=== PATIENT | female | born 1965 | race Caucasian/White ===

== ENCOUNTER 2024-07-19 07:23 | Emergency (ER) | payer BC, SELFPAY ==
[2024-07-19] VITALS (7 sets, daily range): BP systolic 115–154; BP diastolic 58–83
--- NOTE | 2024-07-19 08:00 | ED.GENMED ---
History of Present Illness
General
Chief Complaint: Breathing Problem
Source: patient and records
Exam Limitations: none
Time Seen by Provider: 07/19/24 07:39
Nursing documentation reviewed up to this point in time: agreed with
History of Present Illness
History of Present Illness:
59-year-old female presents with shortness of breath subacute onset has COPD, continues to smoke, about a pack a day history of pemphigoid no longer on steroids uses her nebulizer daily sometimes twice a day no fever no hemoptysis, has had some left
greater than right lower extremity edema and abrasion which did not heal up well, feel some fullness in the lower abdomen, no nausea or vomiting moving her bowels fine, no history of CHF never on a diuretic
Past History
Past History
ED Past Medical History: COPD and Other (pemphigus vulgaris); Negative Asthma, HTN, Hypercholesterolemia or NIDDM
ED Past Surgical History: None
Social History
Tobacco: Smoker
Alcohol: Daily (Wine 5 glasses)
Drug: None
Personal:
Living: with family
Employment: Employed
Family History
Family History: Negative Diabetes, Hypertension, Early CAD, Asthma or Cancer
Review of Systems
Review of Systems
All Other Systems: Not applicable
Constitutional: Denies fever or fatigue
EENT: Reports no symptoms
Respiratory: Reports cough and trouble breathing
Cardiac: Denies chest pain
ABD/GI: Reports other (Fullness into her abdomen); Denies abdominal pain, nausea, diarrhea, constipated or black stools
: Reports no symptoms
Musculoskeletal: Reports no symptoms
Skin: Reports no symptoms
Hematologic/Lymphatic: Reports no symptoms
Psychiatric: Reports no symptoms
Phy Exam
Physical Exam
Physical Exam:
Physical Exam
General: 59 female mild distress
Neck: No jaundice
Heart: Regular
Lungs: Slight tachypnea no wheeze diminished breath
Abdomen: Nontender
Neuro: alert and oriented. no focal neurological deficits
Skin: no rash
Psychiatric: well kept. interactive and cooperative
Extremities: Left greater than right edema healing wound on the anterior escamilla
Scores
Heart Failure Risk
Heart Failure Risk Score: Not Applicable
Course
Orders/Labs/Results
Orders:
Orders
07/19/24 07:25
Electrocardiogram (*1) Urgent
Reason for Study: Shortness of Breath
EKG- Treatment ONCE
07/19/24 07:46
CXR2 [CR Chest - 2 Views ] Urgent
Comment:
Reason For Exam: SOB
07/19/24 07:55
Ipratropium/Albuterol Sulfate [Duoneb] 3 ml INH R NOW ONE
07/19/24 07:58
CMP [Comprehensive Metabolic Panel] Urgent
Complete Blood Count/With Diff Urgent
NT-proBNP Urgent
Troponin I Urgent
07/19/24 08:44
D-Dimer Urgent
07/19/24 09:[address] [CT Chest Pe Study] Urgent
Comment:
Reason For Exam: sob ddimer up
07/19/24 10:10
Albuterol Nebs [Ventolin Nebules] 2.5 mg INH R NOW STA
Dexamethasone Sod Phosphate [Decadron] 10 mg IV NOW STA
Abnormal Lab Results
07/19/24 07/19/24
07:58 08:44
MCH 33.9 H pg
(27.0-31.0)
Lymphocytes % 17.4 L %
(20.5-51.1)
D-Dimer 0.63 H ug/mlFEU
(0.00-0.50)
Glucose 124 H mg/dl
(70-99)
07/19/24 07:58
07/19/24 07:58
Vital Signs
Initial and Last Documented VS:
Initial Vital Signs
Temp Pulse Resp BP Pulse Ox
98.2 F 88 18 154/83 95
07/19/24 07:24 07/19/24 07:24 07/19/24 07:24 07/19/24 07:24 07/19/24 07:24
Last Documented Vital Signs
Temp Pulse Resp BP Pulse Ox
98.2 F 79 12 115/58 94
07/19/24 07:24 07/19/24 10:00 07/19/24 10:00 07/19/24 10:00 07/19/24 10:00
MDM/Problems Addressed
Differential Diagnosis Includes:
COPD pneumonia bronchitis heart failure PE pneumothorax
MDM/Problems Addressed:
Shortness of
Chronic conditions affecting care:
COPD
Chronic conditions affecting care: COPD
Acute Exacerbation and/or Progression of Chronic Illness: COPD
*Radiology
Radiology exam reviewed: preliminary read by ED provider
*Pulse Oximetry
Patient hypoxic: no
*EKG
Interpreted by ED Provider?: Yes
Interpretation: abnormal
Comparison EKG: no comparison EKG present
Heart Rate: 78
Rate: normal
Rhythm: sinus
Ischemia: non-specific ST changes
*Horticultural Farm Manager Interpretation
Rate: normal
Interpretation: normal
Heart Rate: 78
Rhythm: sinus
*Critical Care Note
Total Time (30-74mins, 75-104mins- exclusive of procedures): Not Applicable
Update Note
Update Note:
Update troponin noted proBNP noted chest x-ray noted formal report pending D-dimer pending
update pt didn't tolerate Ct scan due to claustrophobia
Reviewed labs chest x-ray etc. with patient wanted age-adjusted basis her D-dimer is not particularly elevated, she does tell me that she is feeling markedly better after nebulizer and that she believes her nebulizer was not working properly at home
she is anxious to go home, I did offer her admission she states she feels so much better she would like to go home, will treat with a short burst of steroids, albuterol
ED Attending Note
-
Portions of this chart may have been created with voice recognition software.� Occasional wrong word or��sound alike� substitutions may have occurred due to the inherent limitations of voice recognition software.
Discharge Plan
Departure
Patient Disposition: Home (Routine Discharge)
Date of Disposition: 07/19/24
Time of Disposition: 10:26
Patient with high blood pressure during this ER visit?: No
Condition: Good
Covid-19: Not Applicable
Discharge Problem:
COPD exacerbation
Instructions: Acute Bronchitis, Adult (DC), Exacerbation of COPD (DC), Shortness of Breath (Dyspnea) (DC)
Prescriptions:
New
prednisone 10 mg tablet
10 mg PO DIRECTED Qty: 30 0RF
Rx Instructions:
4 pills a day for 3 days, 3 pills a day for 3 days, 2 pills a day for 3 days, 1 pill a day for 3 days
ipratropium-albuterol 0.5 mg-3 mg(2.5 mg base)/3 mL solution for nebulization
3 ml inhalation Q4H PRN (Reason: shortness of breath) Qty: 90 2RF
doxycycline hyclate 100 mg capsule
100 mg PO BID Qty: 14 0RF
No Action
azithromycin 250 MG tablet
500 mg PO DAILY Qty: 2 0RF
Rx Instructions:
TAKE 500MG (2 TABLETS) ON 01/09
guaifenesin [Mucus Relief ER] 600 MG tablet extended release 12hr
1,200 mg PO Q12 Qty: 30 0RF
ipratropium-albuterol 3 ML solution for nebulization
3 ml inhalation Q6H Qty: 1 0RF
Rx Instructions:
TAKE ONCE EVERY 6 HOURS AND NEEDED FOR WHEEZING/SHORTNESS OF BREATH
prednisone 10 MG tablet
10 mg PO .TAPER Qty: 30 0RF
Rx Instructions:
Take 40mg daily x3days, 30mg daily x3days,
20mg daily x3days, 10mg daily x3days.
Referrals:
Fabian Cruz DO [Family Provider] - Next open appointment
Justina Clements, [Active] - Follow up in 10 days
Interventions
Interventions:
*Risk Screen - Suicide Last Done: 07/19/24 07:56
*General Assessment Last Done: 07/19/24 07:56
*Neglect/Abuse Screening Last Done: 07/19/24 07:56
ED- Fall Risk Assessment Last Done: 07/19/24 07:50
*ED COVID-19 Vaccine History Last Done: 07/19/24 07:56
ED- Cardiac Assessment Last Done: 07/19/24 07:50
ED- Pulmonary Assessment Last Done: 07/19/24 07:50
Discharge Date and Time
Print Language: CHINESE
[2024-07-19] MEDS: DUONEB 3 ML INH (08:03)
[2024-07-19 08:20] LABS: % Basophils 0.7 % (0-2); % Eosinophils 1.4 % (0-6); % Immature Granulocytes 0.4 % (0-0.5); % Lymphocytes 17.4 % (20.5-51.1); % Monocytes 7.1 % (1.7-9.3); Absolute Basophils 0.1 10^3/uL (0-0.2); Absolute Eosinophils 0.1 10^3/uL (0-0.7); Absolute Lymphocytes 1.2 10^3/uL (1.2-3.4); Absolute Monocytes 0.5 10^3/uL (0.1-0.6); Absolute Neutrophils 5.1 10^3/uL (1.4-6.5); Hematocrit 42.8 % (37.0-47.0); Hemoglobin 14.9 g/dL (12.0-16.0); Mean Corp Hgb Conc. 34.8 g/dL (33.0-37.0); Mean Corpuscular Hgb 33.9 pg (27.0-31.0); Mean Corpuscular Volume 97.5 fL (81.0-99.0); Mean Platelet Volume 9.9 fL (7.4-10.4); Nucleated Red Blood Cells % 0 %; Platelet Count 227 10^3/uL (130-400); Red Blood Cell Count 4.39 10^6/uL (4.20-5.40); Red Cell Dist. Width 13.2 % (11.5-14.5)
[2024-07-19 08:29] LABS: ALT (SGPT) 21 U/L (0-35); AST (SGOT) 27 U/L (14-36); Albumin 4.3 g/dl (3.5-5.0); Alkaline Phosphatase 82 U/L (38-126); Blood Urea Nitrogen 12 mg/dl (7-17); Calcium 9.4 mg/dl (8.4-10.2); Carbon Dioxide 27 mmol/L (22-30); Chloride 100 mmol/L (98-107); Estimated Creatinine Clearance 108 ml/min; Glucose 124 mg/dl (70-99); Potassium 4.7 mmol/L (3.5-5.1); Sodium 137 mmol/L (135-145); Total Bilirubin 0.4 mg/dl (0.2-1.3); Total Protein 6.9 g/dl (6.3-8.2); eGFR > 60.00
[2024-07-19 08:46] LABS: Troponin I < 0.012 ng/ml
[2024-07-19 09:06] LABS: NT-proBNP 81.7 pg/ml
[2024-07-19 09:17] LABS: D-Dimer 0.63 ug/mlFEU (0.00-0.50)
[2024-07-19] MEDS: VENTOLIN NEBULES 2.5 MG INH (10:22)
[2024-07-19] MEDS: DECADRON 10 MG IV (10:22)
--- NOTE | 2024-07-19 11:24 | EDRN ---
Reviewed discharge instructions with patient. Verbalized understanding. Ambulated with steady gait to the lobby.
== END 2024-07-19 11:25 | disposition home or self-care (01) ==
LOC: EMR 07:23
PROVIDERS: EMERGENCY PHYSICIAN Emergency Medicine; FAMILY PHYSICIAN Family Medicine
DX: J44.1 Chronic obstructive pulmonary disease with (acute) exacerbation (principal); L10.0 Pemphigus vulgaris; I10 Essential (primary) hypertension; E11.9 Type 2 diabetes mellitus without complications; F17.210 Nicotine dependence, cigarettes, uncomplicated; Z82.49 Family history of ischemic heart disease and other diseases of the circulatory system
CPT/HCPCS: 99284; 94640; 96374; 71046; 80053; 83880; 84484; 85025; 85379; 93005

== ENCOUNTER 2025-08-20 06:14 | Day surgery (SDC) | payer BC, SELFPAY ==
[2025-08-06 14:08] VITALS: BMI 33.6
[2025-08-20] VITALS (11 sets, daily range): BP systolic 120–144; BP diastolic 62–82; BMI 33.6
[2025-08-20] MEDS: TYLENOL 1000 MG PO (07:57)
[2025-08-20] MEDS: NORMOSOL-R/PLASMALYTE-A 1000 IV ×2 (07:58→13:23)
[2025-08-20] MEDS: ZOFRAN 4 MG IV (11:08)
[2025-08-20] MEDS: TYLENOL 650 MG PO ×3 (13:21→21:29)
[2025-08-20] MEDS: LOVENOX 40 MG SC (18:32)
[2025-08-20] MEDS: VENTOLIN NEBULES 2.5 MG INH (19:17)
[2025-08-21] MEDS: TYLENOL PO ×2 (00:55→04:55)
[2025-08-21 03:10] VITALS: BP 118/69
[2025-08-21 07:07] VITALS: BP 134/72
[2025-08-21] MEDS: VENTOLIN NEBULES 2.5 MG INH (08:22)
[2025-08-21] MEDS: PROTONIX IV 40 MG IV (08:28)
[2025-08-21] MEDS: TYLENOL 650 MG PO (08:29)
[2025-08-21 08:43] LABS: Hematocrit 43.8 % (37.0-47.0); Hemoglobin 14.6 g/dL (12.0-16.0); Mean Corp Hgb Conc. 33.3 g/dL (33.0-37.0); Mean Corpuscular Volume 97.6 fL (81.0-99.0); Platelet Count 240 10^3/uL (130-400); Red Cell Dist. Width 12.7 % (11.5-14.5)
[2025-08-21 09:07] LABS: Blood Urea Nitrogen 10 mg/dl (7-17); Calcium 9.0 mg/dl (8.4-10.2); Carbon Dioxide 29 mmol/L (22-30); Chloride 104 mmol/L (98-107); Estimated Creatinine Clearance 105 ml/min; Glucose 87 mg/dl (70-99); Potassium 4.5 mmol/L (3.5-5.1); Sodium 139 mmol/L (135-145); eGFR > 60.00
--- NOTE | 2025-08-21 09:55 | CM ---
Met with patient and at the bedside; Case Management Consult completed
Pharmacy verified; [facility] @ [address] [facility] [address]
Lives w/ ; Rancher w/ basement; 3 steps to enter; 13 steps down to Basement (Laundry room); bath has tub w/ shower; raised toiled
PLOF: reported she was independent with ambulation, stairs, and ADLs; retired; Drives
DME: Nebulizer
No SNF or Home Health utilization history
will transport home
Plan: Discharge to home; no needs
[2025-08-21 11:15] VITALS: BP 121/61
--- NOTE | 2025-08-21 12:26 | W.PN.GS2 ---
Addendum entered and electronically signed by Chuy Garcia MD 08/21/25 12:56:
I saw and examined the patient.
The AUTOMATION CONTROLS ENGINEER's note was reviewed and I agree with the note.
Comment: Amnulating, voiding, jazz reg diet, denies n/v, belly soft, approp ttp, binder in place, incisions cdi with glue; AFVSS; OK for DC home, discussed potential for bloating, constipation, ileus
Original Note:
Today's Communication / Plan
-
dispo planning
Assessment / Plan
-
60 yo female presenting for surgical repair of ventral hernia now POD #1 RAL ventral hernia repair with mesh ([id number])
AFVSS
Tolerating diet
Pain minimal/well controlled
Plan:
Continue regular diet as tolerated
Analgesics as needed
OOB/Ambulate
Dispo planning
Subjective Data
-
Date of Service: August 21, 2025
Pt seen and examined at bedside with Dr. Garcia. Denies n/v. Tolerating diet. Ambulating in room. OOB to chair.
Objective Data
-
Intake and Output
08/20/25 08/21/25 08/22/25
06:59 06:59 06:59
Intake Total 350 / 350 480 / 480
Balance 350 / 350 480 / 480
Intake:
Oral fluids 250 / 250 480 / 480
IV fluids (Total) 100 / 100
Normosol 100 / 100
Other:
Number of approximated MODERATE 1 1
amounts of urine
Number of approximated LARGE 1
amounts of urine
Vital Signs
Temp Pulse Resp BP Pulse Ox
98.5 F 70 18 121/61 93
08/21/25 11:15 08/21/25 11:15 08/21/25 11:15 08/21/25 11:15 08/21/25 11:15
Lab Results
08/21/25 07:54
08/21/25 07:54
Calcium 9.0 mg/dl (8.4-10.2) 08/21/25 07:54
Physical Exam
-
NAD
ABD soft, expected tenderness, nd
Incisions well approximated with intact glue, wearing abdominal binder
== END 2025-08-21 14:00 | disposition home or self-care (01) ==
LOC: SDS 06:14
PROVIDERS: ATTENDING PHYSICIAN Surgery; FAMILY PHYSICIAN Family Medicine
DX: K43.9 Ventral hernia without obstruction or gangrene (principal)
CPT/HCPCS: 49593; 36415; 71046; 80048; 85027; 93005; 94640; C1781